=== PATIENT | male | born 1990 | race Two or more races ===

== ENCOUNTER 2022-08-10 14:35 | Emergency (ER) | payer BC, OTHER ==
[~2022-08-10] VITALS: Ht 165.1 cm; Wt 68.6 kg
[2022-08-10 14:57] VITALS: BP 125/75
[2022-08-10] MEDS ORDERED: TETANUS-DIPTH-ACEL PERTUSSIS 0.5ML SYR Tdap IM ONE (15:00)
[2022-08-10] MEDS ORDERED: IBUP800T26 PO (16:04)
[2022-08-10] MEDS ORDERED: AMOX-277 PO (16:04)
== END 2022-08-10 17:09 | disposition home or self-care (01) ==
LOC: ER 14:35
DX: S81.832A Puncture wound without foreign body, left lower leg, initial encounter (principal); S81.812A Laceration without foreign body, left lower leg, initial encounter; W54.0XXA Bitten by dog, initial encounter; Y93.89 Activity, other specified; Y92.89 Other specified places as the place of occurrence of the external cause; Y99.8 Other external cause status
CPT/HCPCS: 73130; 90471; 90715